=== PATIENT | female | born 1960 | race Caucasian/White ===

== ENCOUNTER 2020-07-08 17:10 | Inpatient (IN) ==
[2020-07-08 18:58] LABS: Appearance Urine Clear (Clear); Bilirubin Urine Negative (Negative); Blood Urine Negative (Negative); Color Urine Yellow; Glucose Urine UA Negative (Negative); Ketones Urine Negative (Negative); Leukocyte Esterase Urine Negative (Negative); Nitrite Urine Negative (Negative); Protein Urine Negative (Negative); Urobilinogen Urine Negative (Negative); pH Urine 7.5 (4.5-7.5)
[2020-07-08] MEDS ORDERED: SODIUM CHLORIDE 0.9% 1000ML 1,000 ML IV STA (19:30)
[2020-07-08 19:41] LABS: Basophils # (auto) 0.02 K/uL (0-0.2); Basophils % (auto) 0.2 %; Eosinophils # (auto) 0.11 K/uL (0-0.5); Eosinophils % (auto) 1.3 %; Hematocrit (blood only) 33.1 % (37-47); Hemoglobin 11.5 g/dL (12.0-16.0); Immature Granulocytes # (auto) 0.02 K/uL (0.00-0.02); Immature Granulocytes % (auto) 0.2 %; Lymphocytes # (auto) 2.07 K/uL (1.2-3.4); Lymphocytes % (auto) 25.1 %; Mean Corpuscular Hemoglobin 30.3 pg (25-34); Mean Corpuscular Hgb Conc 34.7 g/dL (32-36); Mean Corpuscular Volume 87.3 fL (80-100); Mean Platelet Volume 8.2 fL (7.4-10.4); Monocytes # (auto) 0.86 K/uL (0.11-0.59); Monocytes % (auto) 10.4 %; Neutrophils # (auto) 5.18 K/uL (1.4-6.5); Neutrophils % (auto) 62.8 %; Platelet Count 331 K/uL (130-400); RDW Coefficient of Variation 12.1 % (11.5-14.5); RDW Standard Deviation 38.9 fL (36.4-46.3); Red Blood Count 3.79 M/uL (4.2-5.4); White Blood Count 8.26 K/uL (4.8-10.8)
[2020-07-08 19:48] LABS: Albumin Level 4.1 gm/dl (3.4-5.0); BUN Creatinine Ratio 17.2 (10-20); Calcium 9.2 mg/dl (8.5-10.1); Est GFR (African American) 113.6; Potassium 4.1 mmol/L (3.5-5.1)
[2020-07-08 19:51] LABS: Bilirubin,Total 0.2 mg/dl (0.2-1); Globulin 4.1 gm/dl (2.5-4.0); Total Protein 8.2 gm/dl (6.4-8.2)
--- NOTE | 2020-07-08 20:30 | History & Physical Report ---
Date of Service July 08, 2020 Assessment & Plan (1) Hyponatremia: This is a 59yo F with PMH of seizure disorder who presents to ED for treatment of hyponatremia. -Transitioned from Tegretol to Trileptal 600mg BID 4 weeks ago with subsequent hyponatremia. Na previously 133-137 and has been 122 since starting Trileptal -Currently asymptomatic. No lethargy, headache, confusion or nausea -Initial Na in ED 122. Started on NSS @ 125 ml/hr which has been discontinued -Likely SIADH 2/2 Trileptal medication. Discussed case with Dr. Lee who recommends fluid restriction of 1.5 L -Monitor sodium with BMP at [place] and at 0600 tomorrow -Routine nephrology consult (2) Seizure disorder: Remote history of seizures. Discontinued Trileptal and starting Tegretol 600mg TID this evening -Routine neurology consult DVT Ppx: SQ heparin Code status: FULL PCP: Kristy Dispo: Admitted to [facility]. Plan to return home once medically stable. Patient seen in collaboration with Dr. Hays. Please see addendum. History of Present Illness Chief Complaint: abnormal labwork Primary Care Provider: Madalyn Wagner DO This is a 59yo F with PMH of seizure disorder who presents to ED for treatment of hyponatremia. Patient follows with Dr. Solis for seizure disorder and had abnormal outpatient labwork from 07/05 with Na of 122. Dr. Solis changed seizure regimen 3-4 weeks ago from Tegretol 200mg 3 tabs TID to Trileptal 600mg BID. While on Tegretol, patient's sodium ranged from 133-137 but has been low at 122 since initiating Trileptal at the beginning of the month. Was seen at [place] [facility] earlier this month with abdominal cramping and was thought to have bacterial enteritis and was discharged on Flagyl. Abdominal symptoms have improved but she has been experiencing intermittent headache, nausea and muscle cramps over the past few weeks, which she attributed to enteritis and new medication for seizures. After abnormal labwork from 07/05 resulted, patient was directed to come to hospital for management of hyponatremia. Dr. Solis also recommends discontinuing Trileptal and resuming Tegretol 200 mg 3 tabs TID with close outpatient follow up for further medication titration. Patient is feeling well currently. Denies fever, chills, headache, lightheadedness, visual changes, chest pain, palpitations, shortness of breath, abdominal pain, nausea, vomiting, dysuria, constipation or diarrhea. Allergies Allergy/AdvReac Type Severity Reaction Status Date / Time amoxicillin AdvReac "does not Unverified 07/08/20 20:30 react well with me. makes me really sick" Home Medications Home Medications Medication Instructions Recorded Confirmed Type am-gsm-gtrsw-calcium carb-K1 1 tab PO DAILY 07/08/20 07/08/20 History [Women's 50 Plus Multivitamin] omeprazole 20 mg PO DAILY 07/08/20 07/08/20 History oxcarbazepine 1,200 mg PO BID 07/08/20 07/08/20 History simvastatin 20 mg PO HS 07/08/20 07/08/20 History vitamin A-vitamin D3 1 cap PO DAILY 07/08/20 07/08/20 History Past Med/Surg History Medical History Seizure disorder Surgical History Fracture of left hip requiring operative repair H/O foot surgery History of appendectomy Hx of tonsillectomy Family History Other Stroke Social History Smoking Status: Former smoker Hx Alcohol Use: No Hx Substance Use: No Preferred Language: Estonian Feels Safe at Home: Yes Review of Systems Review of Systems: At least ten systems reviewed and negative except as noted in the HPI. Physical Exam Physical Exam: General Appearance: WD/WN, vitals as above, NAD, sitting up in bed, pleasant, conversing easily Head: normocephalic, atraumatic Eyes: normal inspection, PERRL, conjunctivae normal, anicteric sclerae ENT: external ear and nose normal, oropharynx normal Neck: normal visual inspection, trachea midline, no thyromegaly Respiratory: normal respiratory effort, lungs clear to auscultation, no wheeze, rales, rhonchi. No accessory muscle use Cardiovascular: regular rate, rhythm, no murmur, normal peripheral pulses, no BLE edema. Vessels: no JVD Chest: normal inspection of chest Abdomen/GI: normal bowel sounds, soft, nontender, no hepatosplenomegaly Extremities/Musculoskeletal: no cyanosis or clubbing, extremities motor strength 5/5 Neurologic: PERRL, EOMI, accommodation nl, no face palsy, no dysarthria, CN's II-XI intact bilaterally and moves all extremities Psychiatric: A+Ox3, + anxious Skin: no rashes, normal color, warm/dry Results & Data Results & Data ([facility]) Vital Signs (Past 12 Hours) Vital Signs Temp Pulse Pulse Resp BP BP Pulse Ox 07/08/20 19:46 71 20 169/89 H 99 07/08/20 17:56 36.9 C 73 17 205/91 H 99 Laboratory Results Short CBC 07/08/20 07/08/20 07/08/20 Range/Units 18:30 18:30 19:30 WBC 8.26 (4.8-10.8) K/uL RBC 3.79 L (4.2-5.4) M/uL Hgb 11.5 L (12.0-16.0) g/dL Hct 33.1 L (37-47) % MCV 87.3 (80-100) fL MCH 30.3 (25-34) pg MCHC 34.7 (32-36) g/dL RDW Std Deviation 38.9 (36.4-46.3) fL RDW Coeff of Evelio 12.1 (11.5-14.5) % Plt Count 331 (130-400) K/uL MPV 8.2 (7.4-10.4) fL Immature Gran % (Auto) 0.2 % Neut % (Auto) 62.8 % Lymph % (Auto) 25.1 % Walker % (Auto) 10.4 % Eos % (Auto) 1.3 % Baso % (Auto) 0.2 % Neut # (Auto) 5.18 (1.4-6.5) K/uL Lymph # (Auto) 2.07 (1.2-3.4) K/uL [place] # (Auto) 0.86 H (0.11-0.59) K/uL Eos # (Auto) 0.11 (0-0.5) K/uL Baso # (Auto) 0.02 (0-0.2) K/uL Immature Gran # (Auto) 0.02 (0.00-0.02) K/uL Sodium 122 L (136-145) mmol/L Potassium 4.1 (3.5-5.1) mmol/L Chloride 88 L (98-107) mmol/L Carbon Dioxide 27 (21-32) mmol/L Anion Gap 7.0 (3-11) BUN 11 (7-18) mg/dl Creatinine 0.62 (0.6-1.2) mg/dl Est Cr Clr Drug Dosing 122.0 ml/min Est GFR ( Amer) 113.6 Est GFR (Non-Af Amer) 98.0 BUN/Creatinine Ratio 17.2 (10-20) Glucose 90 (70-99) mg/dl Calcium 9.2 (8.5-10.1) mg/dl Total Bilirubin 0.2 (0.2-1) mg/dl AST 15 (15-37) U/L ALT 28 (12-78) U/L Alkaline Phosphatase 116 (45-117) U/L Total Protein 8.2 (6.4-8.2) gm/dl Albumin 4.1 (3.4-5.0) gm/dl Globulin 4.1 H (2.5-4.0) gm/dl Albumin/Globulin Ratio 1.0 (0.9-2) Lipase 166 (73-393) U/L Urine Color Yellow Urine Appearance Clear (Clear) Urine pH 7.5 (4.5-7.5) Ur Specific [place] 1.010 (1.000-1.030) Urine Protein Negative (Negative) Urine Glucose (UA) Negative (Negative) Urine Ketones Negative (Negative) Urine Blood Negative (Negative) Urine Nitrite Negative (Negative) Urine Bilirubin Negative (Negative) Urine Urobilinogen Negative (Negative) Ur Leukocyte Esterase Negative (Negative) BMP 07/08/20 18:30 Sodium 122 L Potassium 4.1 Chloride 88 L Carbon Dioxide 27 BUN 11 Creatinine 0.62 Glucose 90 Calcium 9.2 Liver Function 07/08/20 Range/Units 18:30 Total Bilirubin 0.2 (0.2-1) mg/dl AST 15 (15-37) U/L ALT 28 (12-78) U/L Alkaline Phosphatase 116 (45-117) U/L Albumin 4.1 (3.4-5.0) gm/dl Urine 07/08/20 Range/Units 18:30 Urine Color Yellow Urine Appearance Clear (Clear) Urine pH 7.5 (4.5-7.5) Ur Specific [place] 1.010 (1.000-1.030) Urine Protein Negative (Negative) Urine Glucose (UA) Negative (Negative) Code Status & VTE Plan VTE Prophylaxis Plan VTE Prophylaxis will be ordered: Yes
--- NOTE | 2020-07-08 21:40 | Hospitalist Progress Note ---
Date of Service July 08, 2020 Results & Data Results & Data ([facility]) Vital Signs (Past 12 Hours) Vital Signs Temp Pulse Pulse Resp BP BP Pulse Ox 07/08/20 20:57 72 20 166/85 H 100 07/08/20 19:46 71 20 169/89 H 99 07/08/20 17:56 36.9 C 73 17 205/91 H 99
--- NOTE | 2020-07-08 21:46 | Communication Note ---
Date of Service: July 08, 2020 Attending Addendum: care coordinated with AVEL Ricks please refer to her notes for full details, I agree with her notes patient seen and examined, records reviewed by myself as well on exam, patient seen sitting up in bed, comfortable denies headache, dizziness, confusion, lethargy, nausea no other symptoms VS noted and reviewed oriented x 3 , not in distress, speaks in sentences with no effort nor accessory muscle use normal rate, regular rhythm, no murmurs clear breath sounds bilaterally non distended, soft, nontender no bipedal edema, erythema, warmth no neuro deficits WBC 8.26 Hg 11.5 Crea 0.62 ASSESSMENT AND PLAN> HYPONATREMIA, SECONDARY TO TRILEPTAL Na 122 (baseline 137) discussed with Nephro Dr. Lee recommend to d/c Trileptal, Fluid restriction, Na q6h SEIZURE DISORDER per Dr. Solis, transition patient back to Tegretol 600mg TID other diagnoses and plan of care as per AVEL Ricks's notes Kale Hays MD
[2020-07-08] MEDS ORDERED: ACETAMINOPHEN 325 MG TAB PO PRN (22:04)
[2020-07-08] MEDS: carBAMazepine 200 MG TABLET PO SCH (22:29)
--- NOTE | 2020-07-08 23:48 | Emergency Department Note ---
Impression & Plan Hyponatremia ED Provider Note INFORMANT: Patient ED PROVIDER(S): Kp Spring MD CHIEF COMPLAINT: Abnormal labs PLAN: Disposition: Admitted Condition: Good MEDICAL DECISION MAKING: Patient presented with complaints of abnormal labs. She was told she had low sodium. The patient's neurologist did contact the ER and stated that she was started on Trileptal which can cause hyponatremia. Outpatient labs revealed hyponatremia. She felt the patient should be admitted and have her Trileptal transition back to Tegretol. The patient noted feeling mildly weak and general malaise. She had blood work obtained. Her CBC was unremarkable. The patient's chemistry panel does reveal hyponatremia which is quite significant at 122. Urinalysis was unremarkable. [facility] was [facility] the patient. He evaluated the patient and admit her for further management. Triage Nursing notes reviewed and agree them. Vital Signs: reviewed and remarkable for no significant abnormalities Differential diagnosis: Medication side effect, infection, dehydration, metabolic abnormality, hypo/hyperglycemia, electrolyte disturbance, anemia, hypoxia, cardiac sources, intracerebral event, toxicologic, neurologic, as well as other pathologies. Diagnostics interpreted by me: Imaging studies: [facility] HPI: The patient is a 59 year old female who presents to the Emergency Room with complaints of abnormal labs. This started on Wednesday and is persisting. The patient also notes the following associated symptoms, feeling generally weak and general malaise. The patient has has found no relieving factors. Current pain is rated as 0/10. Patient recently was transitioned Tegretol to Trileptal. Outpatient labs revealed hyponatremia. Neurology is concerned about possible medication induced hyponatremia from the Trileptal. They recommended admission and transition back to the Tegretol. Pt denies LOC, headache, fevers, chills, diaphoresis, visual changes, neck pain, chest pain, breathing difficulties, nausea, vomiting, abdominal pain, back pain, melena, hematochezia, urinary symptoms, numbness, lymphadenopathy, rash, or other complaints. ROS: See above HPI for pertinent positives & negatives. A total of 10 systems reviewed and were otherwise negative. PAST MEDICAL HISTORY:See Below, seizure disorder PAST SURGICAL HISTORY:See Below, FAMILY HISTORY:See Below SOCIAL HISTORY:See Below, employed HOME MEDICATIONS:See Below ALLERGIES:See Below VITALS:See Below PHYSICAL EXAMINATION: GENERAL: Awake, alert, well-appearing, in no distress HENT: Normocephalic, atraumatic. Oropharynx unremarkable. EYES: Normal conjunctiva. Sclera non-icteric. NECK: Inspection normal. Non-tender. Supple. No nuchal rigidity. FROM. No masses. RESPIRATORY: Clear to auscultation. No wheezes. No rales. Normal respiratory effort. CARDIAC: Normal rate. Normal rhythm. No murmurs. No rubs. Extremities warm and well perfused. Pulses equal. No JVD. GI: Soft, non-distended. No tenderness to palpation. No rebound or guarding. No masses. RECTAL: Deferred. MUSCULOSKELETAL: Atraumatic. Chest examination reveals no tenderness. The back is symmetrical on inspection without obvious abnormality. There is no CVA tenderness to palpation. No joint edema. LOWER EXTREMITIES: Calves are equal size bilaterally and non-tender. No edema. No discoloration. NEURO: Normal sensorium. No sensory or motor deficits noted. SKIN: No rash or jaundice noted. Kp Spring MD Past Med/Surg History Medical History Seizure disorder Surgical History Fracture of left hip requiring operative repair H/O foot surgery History of appendectomy Hx of tonsillectomy Family History Other Stroke Social History Smoking Status: Former smoker Second Hand Exposure: No; Do You Dip or Chew Tobacco: No; Tobacco Cessation Education Requested by Patient: No Hx Alcohol Use: No Hx Substance Use: No Preferred Language: Japanese Communication Ability: Effective Current Living Situation: Spouse Other Information That Helps Us Care for You: No Feels Safe at Home: Yes Safety Concerns: Feels Safe At This Time Assistive Devices: None Allergies Allergies Allergy/AdvReac Type Severity Reaction Status Date / Time amoxicillin AdvReac "does not Unverified 07/08/20 20:30 react well with me. makes me really sick" Home Meds Home Medications Medication Instructions Recorded Confirmed ic-efr-noxsr-calcium carb-K1 1 tab PO DAILY 07/08/20 07/08/20 [Women's 50 Plus Multivitamin] omeprazole 20 mg PO DAILY 07/08/20 07/08/20 oxcarbazepine 1,200 mg PO BID 07/08/20 07/08/20 simvastatin 20 mg PO HS 07/08/20 07/08/20 vitamin A-vitamin D3 1 cap PO DAILY 07/08/20 07/08/20 Results & Data (ED) Vital Signs Vital Signs - 24 hr 07/08/20 17:56 07/08/20 19:46 Temperature 36.9 C Temperature Source Oral Pulse Rate 73 Pulse Rate [Bilateral Apical] 71 Respiratory Rate 17 20 Respiratory Effort / Characteristics Non-Labored Spontaneous Non-Labored Respiratory Depth Normal Normal Respiratory Pattern Regular Blood Pressure 205/91 H Blood Pressure [Right Arm] 169/89 H Blood Pressure Mean 129 Blood Pressure Mean [Right Arm] 115 Pulse Oximetry 99 99 Oxygen Delivery Method Room Air Room Air Sepsis Recent Fever Within 48 Hours No Sepsis New/Unexplained Change in Mental Status No Sepsis Action Taken by Nursing No Action Required Laboratory Data Result diagrams: 07/08/20 19:30 07/08/20 18:30 Lab Results 07/08/20 07/08/20 07/08/20 Range/Units 18:30 18:30 19:30 WBC 8.26 (4.8-10.8) K/uL RBC 3.79 L (4.2-5.4) M/uL Hgb 11.5 L (12.0-16.0) g/dL Hct 33.1 L (37-47) % MCV 87.3 (80-100) fL MCH 30.3 (25-34) pg MCHC 34.7 (32-36) g/dL RDW Std Deviation 38.9 (36.4-46.3) fL RDW Coeff of Evelio 12.1 (11.5-14.5) % Plt Count 331 (130-400) K/uL MPV 8.2 (7.4-10.4) fL Immature Gran % (Auto) 0.2 % Neut % (Auto) 62.8 % Lymph % (Auto) 25.1 % [place] % (Auto) 10.4 % Eos % (Auto) 1.3 % Baso % (Auto) 0.2 % Neut # (Auto) 5.18 (1.4-6.5) K/uL Lymph # (Auto) 2.07 (1.2-3.4) K/uL [place] # (Auto) 0.86 H (0.11-0.59) K/uL Eos # (Auto) 0.11 (0-0.5) K/uL Baso # (Auto) 0.02 (0-0.2) K/uL Immature Gran # (Auto) 0.02 (0.00-0.02) K/uL Sodium 122 L (136-145) mmol/L Potassium 4.1 (3.5-5.1) mmol/L Chloride 88 L (98-107) mmol/L Carbon Dioxide 27 (21-32) mmol/L Anion Gap 7.0 (3-11) BUN 11 (7-18) mg/dl Creatinine 0.62 (0.6-1.2) mg/dl Est Cr Clr Drug Dosing 122.0 ml/min Est GFR ( Amer) 113.6 Est GFR (Non-Af Amer) 98.0 BUN/Creatinine Ratio 17.2 (10-20) Glucose 90 (70-99) mg/dl Calcium 9.2 (8.5-10.1) mg/dl Total Bilirubin 0.2 (0.2-1) mg/dl AST 15 (15-37) U/L ALT 28 (12-78) U/L Alkaline Phosphatase 116 (45-117) U/L Total Protein 8.2 (6.4-8.2) gm/dl Albumin 4.1 (3.4-5.0) gm/dl Globulin 4.1 H (2.5-4.0) gm/dl Albumin/Globulin Ratio 1.0 (0.9-2) Lipase 166 (73-393) U/L Urine Color Yellow Urine Appearance Clear (Clear) Urine pH 7.5 (4.5-7.5) Ur Specific [place] 1.010 (1.000-1.030) Urine Protein Negative (Negative) Urine Glucose (UA) Negative (Negative) Urine Ketones Negative (Negative) Urine Blood Negative (Negative) Urine Nitrite Negative (Negative) Urine Bilirubin Negative (Negative) Urine Urobilinogen Negative (Negative) Ur Leukocyte Esterase Negative (Negative) Administered Medications Carbamazepine (Carbamazepine 200 Mg Tablet) 600 mg PO TID APRIL Stop: 08/07/20 21:20 Last Admin: 07/08/20 22:29 Dose: 600 mg Documented by: [id number] Discontinued Medications Sodium Chloride (Nss 1000ml) 1,000 mls @ 125 mls/hr IV .Q8H STA Stop: 07/09/20 03:29 Last Admin: 07/08/20 19:46 Dose: 125 mls/hr Documented by: [id number] Discharge Plan Visit Data Chief Complaint: Abnormal Labs/Diagnostic Testing Stated Complaint: HYPONATREMIA ED Provider: Kp Spring Discharge Problem: Hyponatremia Patient Disposition: Admitted As Inpatient Discharge Instructions Interventions: ED Discharge Assessment Last Done: 07/08/20 21:04
[2020-07-09 00:17] LABS: Calcium 8.9 mg/dl (8.5-10.1); Creatinine Clr Calc Pharmacy 119.7 ml/min; Est GFR (African American) 113.6; Potassium 3.6 mmol/L (3.5-5.1)
[2020-07-09] MEDS ORDERED: hydrALAZINE HCL 20 MG/ML VIAL IV PRN (00:53)
[2020-07-09] MEDS ORDERED: HEPARIN SOD 5,000 UNIT/0.5 ML VIAL SQ SCH (06:00)
[2020-07-09] MEDS ORDERED: ACETAMINOPHEN 325 MG TAB PO PRN (07:25)
[2020-07-09 07:56] LABS: Hematocrit (blood only) 34.1 % (37-47); Hemoglobin 11.7 g/dL (12.0-16.0); Mean Corpuscular Hemoglobin 30.3 pg (25-34); Mean Corpuscular Hgb Conc 34.3 g/dL (32-36); Mean Corpuscular Volume 88.3 fL (80-100); Mean Platelet Volume 7.8 fL (7.4-10.4); Platelet Count 290 K/uL (130-400); RDW Coefficient of Variation 12.3 % (11.5-14.5); RDW Standard Deviation 39.2 fL (36.4-46.3); Red Blood Count 3.86 M/uL (4.2-5.4); White Blood Count 4.47 K/uL (4.8-10.8)
--- NOTE | 2020-07-09 08:22 | Nephrology Consultation ---
Date of Consultation July 09, 2020 Assessment & Plan (1) Hyponatremia: Presenting sodium 122 suspected from trileptal; improving clinically and appropriately to 125 this am. do note that some work up still to be done as below -- volume depletion may have a role here as well -cont med changes per neuro -goal sNa is 128 by this evening -agree w/ already ordered recheck bmp at 1300 and 1900 > plan w/ midday to also check serum osms, urine osms, rd urine Na (ordered) -cont FR 1.5L Present on Admission?: Yes (2) Seizure disorder: per neuro and primary service; transitioning away from trileptal and back to tegretol Present on Admission?: Yes History of Present Illness Reason for Consultation: hyponatremia Requesting Physician: Dr Hays Attending Physician: Maury Lord MD History of Present Illness 59 y/o F whom I'm asked to see for hyponatremia after she was sent in by neurology for OP sNa 122. PMH includes seizure disorder with change one month back from tegretol to trileptal. Prior to medication switch, sNa ran about 135; earlier this month did have sNa 122 during emergency room visit to outside hospital for abdominal pain; attributed to bacterial enteritis and d/c home on flagyl w/o intervention on sodium. Since then pt has had marked abdominal bloating and cramping at times w/ decreased po intake and occasional PICKERING, mm cramps she thought were from trileptal. Then labs rechecked on 07/05 again w/ low sodium 122. Advised by me and neuro to come to ER for evaluation. Presented to ER w/ same sNa 122 yesterday 1829. On presentation, trileptal stopped, tegretol resumed and pt put on FR 1.5L. She did have some saline (less than 1L) in ER. Last evening sNa up to 126 by 2330; 125 this morning. No NSAID use. Allergies Allergy/AdvReac Type Severity Reaction Status Date / Time amoxicillin AdvReac "does not Unverified 07/08/20 20:30 react well with me. makes me really sick" Home Medications Home Medications Medication Instructions Recorded Confirmed Type yr-rcc-uxguv-calcium carb-K1 1 tab PO DAILY 07/08/20 07/08/20 History [Women's 50 Plus Multivitamin] omeprazole 20 mg PO DAILY 07/08/20 07/08/20 History oxcarbazepine 1,200 mg PO BID 07/08/20 07/08/20 History simvastatin 20 mg PO HS 07/08/20 07/08/20 History vitamin A-vitamin D3 1 cap PO DAILY 07/08/20 07/08/20 History Patient History Medical History Seizure disorder Surgical History Fracture of left hip requiring operative repair H/O foot surgery History of appendectomy Hx of tonsillectomy Family History Other Stroke Social History Smoking Status: Former smoker Second Hand Exposure: No; Do You Dip or Chew Tobacco: No; Tobacco Cessation Education Requested by Patient: No Hx Alcohol Use: No Hx Substance Use: No Preferred Language: Omani Communication Ability: Effective Current Living Situation: Spouse Other Information That Helps Us Care for You: No Feels Safe at Home: Yes Safety Concerns: Feels Safe At This Time Assistive Devices: None Review of Systems Review of Systems: All systems reviewed & are unremarkable except as noted in HPI & below Constitutional: + fatigue and + anorexia Gastrointestinal: + abdominal pain, + bloating, + early satiety and + nausea; no vomiting and no change in bowel habits Genitourinary: + urinary hesitancy (notes weaker stream lately) Neurologic: + lack of coordination; no gait abnormality, no unsteadiness, no falls, no tingling, no seizure-like activity and no behavioral changes Results & Data ([facility]) Vital Signs (Past 12 Hours) Vital Signs Temp Pulse Pulse Resp BP Pulse Ox 07/09/20 07:36 75 07/08/20 23:00 71 07/08/20 21:30 36.8 C 80 16 168/90 H 07/08/20 20:57 72 20 166/85 H 100 Laboratory Results 07/09/20 07:40 07/09/20 07:40 Urinalysis: Specific gravity 1010 clear yellow urine with a pH of 7.5 and dipstick indices negative Diagnostic Findings none
[2020-07-09 08:24] LABS: BUN Creatinine Ratio 15.6 (10-20); Calcium 9.3 mg/dl (8.5-10.1); Creatinine Clr Calc Pharmacy 123.5 ml/min; Est GFR (African American) 114.8; Est GFR (Non-African American) 99.1; Potassium 4.5 mmol/L (3.5-5.1)
[2020-07-09] MEDS: PANTOprazole 40 MG TAB PO SCH (08:27)
[2020-07-09] MEDS: carBAMazepine 200 MG TABLET PO SCH ×3 (08:27→18:25)
--- NOTE | 2020-07-09 08:35 | Hospitalist Progress Note ---
Date of Service July 09, 2020 Assessment & Plan (1) Hyponatremia: This is a 59yo F with PMH of seizure disorder who presents to ED for treatment of hyponatremia. -Transitioned from Tegretol to Trileptal 600mg BID 4 weeks ago with subsequent hyponatremia. serum sodium was previously 133 to 137 as outpatient and has been around 122 since starting Trileptal -Patient was told to present to the hospital on 07/08/2020 because of hyponatremia labs when outpatient -07/08/2020 serum sodium 122. Patient was initially giving normal saline IV fluids. Admitting hospitalist team also discussed with [facility] nephrology Dr. Lee who recommends fluid restriction of 1.5 L and that at this time, patient should be off the Trileptal in case any contribution by medication to hyponatremia. SIADH was also discussed as a possibility for the persistent hyponatremia -patient denies recent history of vomiting or diarrhea -continue fluid restriction of 1500 ml daily as per recent nephrology recommendations -serum sodium levels mildly improved to 126 and 125 as of the labs on 07/09/2020 -patient denies of ever being on sodium tablets and this can considered in the future Hypertensive episode -hypertensive blood pressures noted in the ED, unclear as to the cause -patient not on blood pressure medications on outpatient basis. monitor blood pressure at this time (2) Seizure disorder: Remote history of seizures. -Discontinued Trileptal and at this time, patient is on former Tegretol dosing of 600 mg three times a day (scheduled for 6 AM, after lunch, after dinner as per patient's preference) -Routine neurology consult (3) Anemia: -hemoglobin stable between 11 to 12 (4) Abdominal cramping: -patient has been scheduled for outpatient followup with gastroenterology clinic because of history of intermittent abdominal cramps/bloating symptoms -continue protonics DVT Ppx: replaced Subcutaneous heparin 5000 units q8 hours with SCDs when at rest, because of anemia and history of abdominal cramp symptoms, also because patient is ambulatory Code status: FULL PCP: Kristy Admission and Anticipated Discharge Date Admission Date: July 08, 2020 Subjective Patient finished her meals. No acute distress. She wishes the Tegratol dosing schedule for 6 in the morning, after lunch with meals, after dinner with meals. no obvious tremors noted. no acute pain. no chest pain. no acute abdomen pain. no headache. no dizziness. patient reports she ambulates okay. no nausea. no vomiting. no swelling of the extremities. Review of Systems Review of Systems: All systems reviewed & are unremarkable except as noted in Subjective Physical Exam Constitutional: cooperative and comfortable Eyes: PERRL, conjunctivae normal, anicteric sclerae EOM intact bilaterally ENMT: external ear and nose normal, oropharynx normal Neck: trachea midline, no thyromegaly normal visual inspection Respiratory: normal respiratory effort, lungs clear to auscultation Cardiovascular: Rate/Rhythm: regular rate Gastrointestinal (Abdomen): normal bowel sounds, soft, nontender, no hepatosplenomegaly Musculoskeletal: Head/Neck/Chest: normocephalic and head atraumatic Neurologic: PERRL, EOMI, accommodation nl, no face palsy, no dysarthria CN's II-XI intact bilaterally and moves all extremities Psychiatric: A+Ox3, euthymic affect Results & Data Results & Data ([facility]) Vital Signs (Past 12 Hours) Vital Signs Temp Pulse Pulse Pulse Resp BP Pulse Ox 07/09/20 07:36 75 07/09/20 07:30 36.8 C 68 18 137/78 94 07/08/20 23:00 71 07/08/20 21:30 36.8 C 80 16 168/90 H 07/08/20 20:57 72 20 166/85 H 100
[2020-07-09] MEDS ORDERED: [UNRECOGNIZED DRUG - OTHER] PO SCH (09:00)
[2020-07-09] MEDS ORDERED: [UNRECOGNIZED DRUG - OTHER] PO SCH (09:00)
--- NOTE | 2020-07-09 13:08 | Consultation Report ---
DATE OF CONSULTATION: 07/09/2020 NEUROLOGY CONSULTATION NOTE CHIEF COMPLAINT: Hyponatremia. HISTORY OF PRESENT ILLNESS: This is a 59-year-old woman with history of epilepsy, following with Dr. Lida Solis, admitted for treatment of hyponatremia. The patient recently was admitted for an abnormal sodium level, which was checked as an outpatient, which resulted in a sodium level of 122. Her antiepileptic medication regimen was adjusted about 1 month ago from Tegretol 200 mg 3 tablets 3 times daily to Trileptal 600 mg twice daily. While on Tegretol, the patient's sodium was in the mid 130s, but is now much lower since initiating Trileptal at the beginning of this month. Since she has been experiencing some intermittent headaches, nausea, muscle cramps over the past few weeks, per telephone encounter yesterday, Dr. Solis recommended discontinuing Trileptal and resuming Tegretol 600 mg 3 times daily with outpatient followup. ALLERGIES: AMOXICILLIN. HOME MEDICATIONS: Trileptal 600 mg twice daily, omeprazole, simvastatin, vitamin A, vitamin D. PAST MEDICAL HISTORY: Epilepsy. PAST SURGICAL HISTORY: Fracture of the left hip, foot surgery, history of appendectomy, history of tonsillectomy. FAMILY HISTORY: Pertinent for stroke. SOCIAL HISTORY: She is a former smoker. Denies alcohol. REVIEW OF SYSTEMS: All review of systems was negative except as noted above in the HPI. PHYSICAL EXAMINATION: VITAL SIGNS: Blood pressure 137/78, pulse is 75, respiratory rate is 18, temperature is 36.8, oxygen saturation is 94% on room air. GENERAL: The patient appears her stated age, in no distress. HEENT: Head is atraumatic and normocephalic. Normal eyelids. Normal conjunctivae. NECK: Supple. LUNGS: Normal respiratory effort. CARDIOVASCULAR: Normal pulses. ABDOMEN: Nondistended. SKIN: No skin rash. NEUROPSYCHIATRIC: Normal mood. She is awake, alert and oriented to person, place and time. Her knowledge is appropriate. Her attention is normal. Her language shows no aphasia, no dysarthria. Comprehension is intact. Following simple commands. DIAGNOSTIC TESTING AND LABORATORY VALUES: WBC 4.47, hemoglobin 11.7, platelet count is 290. Sodium is 125, potassium 4.5, chloride 93, BUN 9, creatinine 0.60. ASSESSMENT AND PLAN: A 59-year-old woman with history of epilepsy, admitted with worsening hyponatremia, thought secondary to Trileptal. We will discontinue Trileptal and resume Tegretol 200 mg 3 tablets 3 times daily. Appreciate nephrology's assistance. Will need to trend sodium levels as outpatient. Please contact me with any additional questions or concerns. MARQUESD
[2020-07-09 13:53] LABS: Albumin Level 4.1 gm/dl (3.4-5.0); BUN Creatinine Ratio 15.5 (10-20); Calcium 9.3 mg/dl (8.5-10.1); Creatinine Clr Calc Pharmacy 100.2 ml/min; Est GFR (African American) 102.1; Est GFR (Non-African American) 88.1; Potassium 4.1 mmol/L (3.5-5.1)
[2020-07-09 13:56] LABS: Bilirubin,Total 0.2 mg/dl (0.2-1); Globulin 4.1 gm/dl (2.5-4.0); Total Protein 8.2 gm/dl (6.4-8.2)
[2020-07-09 15:29] LABS: Appearance Urine Clear (Clear); Bacteria Urine Automated Negative (Negative); Bilirubin Urine Negative (Negative); Blood Urine Negative (Negative); Color Urine Yellow; Epithelial Cell Urine Auto >30 /lpf (0-5); Glucose Urine UA Negative (Negative); Ketones Urine Negative (Negative); Leukocyte Esterase Urine Trace (Negative); Nitrite Urine Negative (Negative); Protein Urine Negative (Negative); RBC Urine Automated 0-4 /hpf (0-4); Specific Gravity Urine 1.011 (1.000-1.030); Urobilinogen Urine Negative (Negative)
[2020-07-09 20:30] LABS: BUN Creatinine Ratio 15.2 (10-20); Calcium 9.4 mg/dl (8.5-10.1); Creatinine Clr Calc Pharmacy 66.2 ml/min; Est GFR (African American) 61.8; Est GFR (Non-African American) 53.4; Potassium 4.5 mmol/L (3.5-5.1)
[2020-07-09] MEDS ORDERED: SIMVASTATIN 20 MG TAB PO SCH (21:00)
[2020-07-10 01:28] LABS: Basophils # (auto) 0.01 K/uL (0-0.2); Basophils % (auto) 0.1 %; Eosinophils # (auto) 0.14 K/uL (0-0.5); Hematocrit (blood only) 32.7 % (37-47); Hemoglobin 11.2 g/dL (12.0-16.0); Immature Granulocytes # (auto) 0.01 K/uL (0.00-0.02); Immature Granulocytes % (auto) 0.1 %; Lymphocytes # (auto) 1.68 K/uL (1.2-3.4); Lymphocytes % (auto) 23.7 %; Mean Corpuscular Hemoglobin 30.3 pg (25-34); Mean Corpuscular Hgb Conc 34.3 g/dL (32-36); Mean Corpuscular Volume 88.4 fL (80-100); Monocytes # (auto) 0.98 K/uL (0.11-0.59); Monocytes % (auto) 13.8 %; Neutrophils # (auto) 4.26 K/uL (1.4-6.5); Neutrophils % (auto) 60.3 %; Platelet Count 299 K/uL (130-400); RDW Coefficient of Variation 12.4 % (11.5-14.5); RDW Standard Deviation 39.9 fL (36.4-46.3); White Blood Count 7.08 K/uL (4.8-10.8)
[2020-07-10 01:46] LABS: Albumin Level 3.7 gm/dl (3.4-5.0); BUN Creatinine Ratio 23.1 (10-20); Calcium 8.9 mg/dl (8.5-10.1); Creatinine Clr Calc Pharmacy 87.2 ml/min; Est GFR (African American) 86.3; Est GFR (Non-African American) 74.5; Potassium 4.2 mmol/L (3.5-5.1)
[2020-07-10 01:48] LABS: Bilirubin,Total 0.2 mg/dl (0.2-1); Globulin 3.8 gm/dl (2.5-4.0); Total Protein 7.5 gm/dl (6.4-8.2)
[2020-07-10] MEDS: PANTOprazole 40 MG TAB PO SCH (08:03)
[2020-07-10] MEDS: carBAMazepine 200 MG TABLET PO SCH ×2 (08:04→12:50)
[2020-07-10 09:15] LABS: BUN Creatinine Ratio 19.8 (10-20); Calcium 9.1 mg/dl (8.5-10.1); Creatinine Clr Calc Pharmacy 96.9 ml/min; Est GFR (African American) 97.3; Est GFR (Non-African American) 83.9; Potassium 4.2 mmol/L (3.5-5.1)
--- NOTE | 2020-07-10 11:35 | Discharge Summary ---
Date of Service July 10, 2020 Admission HPI Per Admitting Provider This is a 59yo F with PMH of seizure disorder who presents to ED for treatment of hyponatremia. Patient follows with Dr. Solis for seizure disorder and had abnormal outpatient labwork from 07/05 [address] of [address] Solis changed seizure regimen 3-4 weeks ago from Tegretol 200mg 3 tabs TID to Trileptal 600mg BID. While on Tegretol, patient's sodium ranged from 133-137 but has been low at 122 since initiating Trileptal at the beginning of the month. Was seen at [place] [facility] earlier this month with abdominal cramping and was thought to have bacterial enteritis and was discharged on Flagyl. Abdominal symptoms have improved but she has been experiencing intermittent headache, nausea and muscle cramps over the past few weeks, which she attributed to enteritis and new medication for seizures. After abnormal labwork from 07/05 resulted, patient was directed to come to hospital for management of hyponatremia. Dr. Solis also recommends discontinuing Trileptal and resuming Tegretol 200 mg 3 tabs TID with close outpatient follow up for further medication titration. Patient is feeling well currently. Denies fever, chills, headache, lightheadedness, visual changes, chest pain, palpitations, shortness of breath, abdominal pain, nausea, vomiting, dysuria, constipation or diarrhea. Principal Diagnosis Hyponatremia Hypertensive episode (in the Emergency room) Seizure disorder Anemia Abdominal Cramping Discharge Exam Constitutional cooperative and comfortable Eyes PERRL, conjunctivae normal, anicteric sclerae EOM intact bilaterally ENMT external ear and nose normal, oropharynx normal Neck trachea midline, no thyromegaly normal visual inspection Respiratory normal respiratory effort, lungs clear to auscultation Cardiovascular Rate/Rhythm: regular rate Gastrointestinal (Abdomen) normal bowel sounds, soft, nontender, no hepatosplenomegaly Musculoskeletal Head/Neck/Chest: normocephalic and head atraumatic Neurologic PERRL, EOMI, accommodation nl, no face palsy, no dysarthria CN's II-XI intact bilaterally and moves all extremities Psychiatric A+Ox3, euthymic affect Discharge Data Allergies Allergy/AdvReac Type Severity Reaction Status Date / Time oxcarbazepine AdvReac Unknown hyponatremi Verified 07/10/20 11:10 [From Trileptal] a amoxicillin AdvReac "does not Unverified 07/08/20 20:30 react well with me. makes me really sick" Consultations 07/08/20 20:14 ED Decision to Admit Stat 07/08/20 22:04 Consult Nephrology Routine Consult Neurology Routine Hospital Course (1) Hyponatremia: This is a 59yo F with PMH of seizure disorder who presents to ED for treatment of hyponatremia. -Transitioned from Tegretol to Trileptal 600mg BID 4 weeks ago with subsequent hyponatremia. serum sodium was previously 133 to 137 as outpatient and has been around 122 since starting Trileptal -Patient was told to present to the hospital on 07/08/2020 because of hyponatremia labs when outpatient -07/08/2020 serum sodium 122. Patient was initially giving normal saline IV fluids. Admitting hospitalist team also discussed with [facility] nephrology Dr. Lee who recommends fluid restriction of 1.5 L and that at this time, patient should be off the Trileptal in case any contribution by medication to hyponatremia. SIADH was also discussed as a possibility for the persistent hyponatremia -patient denies recent history of vomiting or diarrhea -continue fluid restriction of 1500 ml daily as per recent nephrology recommendations -serum sodium levels mildly improved to 126 and 125 as of the labs on 07/09/2020 -discharge to home Patient will need to follow with primary care doctor for outpatient labs of serum sodium. The 07/08/2020 serum sodium of 122, subsequently in high 120s while off Trileptal (Oxcarbazepine) and on 1.5 liter daily water restriction. Serum sodium stabilized as 128 on 07/10/[address] Davenport from nephrology allows for hospital discharge by hospitalist medicine and advises that patient continues to be on 1.5 liter daily water restriction at this time, while being off the Trileptal -discharge medication of carbamazepine 600 mg three times a day sent electronically to [facility] in [place], [place] -patient not on blood pressure medications on outpatient basis. monitor blood pressure at this time, outpatient primary care doctor follow up on blood pressure treatment -discharge appointments 07/11/2020 8:20 AM Provider Helen Tovar MD Department Gastroenterology, [facility] 08/01/2020 10:00 AM Provider Lida Solis MD Department Neurology [facility] 08/26/2020 2:30 PM Provider Jocelyn Davenport MD Department Nephrology, [facility] Hypertensive episode -hypertensive blood pressures noted in the ED, unclear as to the cause -patient not on blood pressure medications on outpatient basis. monitor blood pressure at this time, outpatient primary care doctor follow up on blood pressure treatment (2) Seizure disorder: Remote history of seizures. -Discontinued Trileptal and at this time, patient is on former Tegretol dosing of 600 mg three times a day (scheduled for 6 AM, after lunch, after dinner as per patient's preference) -neurology consult advised to continue the Tegretol (3) Anemia: -hemoglobin stable between 11 to 12 (4) Abdominal cramping: -patient has been scheduled for outpatient followup with gastroenterology clinic because of history of intermittent abdominal cramps/bloating symptoms -continue protonics Total Time Total Time Spent Total Time Spent (In Minutes): 40 minutes Total Time Includes: Examination of the Patient, Discharge Planning, Medication Reconciliation and Communication With Other Providers Discharge Plan Discharge Items Patient Disposition: Home - Self-Care Reason For Visit: HYPONATREMIA Discharge Diagnosis: Hyponatremia Hypertensive episode (in the Emergency room) Seizure disorder Anemia Abdominal Cramping Condition on Discharge: Good Activity: Resume your previous activity Non-emergency contact: Primary Care Provider, Gis Manager, Compensation Associate and Neurologist Call non-emergency contact if: you have any medication questions Follow-up/Referrals: Madalyn Wagner DO [Primary Care Provider] - Diet: Regular Fluids: 1500ml (6 cups) Diet Comment: maintain daily fluid restriction to 1500 ml Addtl Attending Provider Instructions: discharge to home Patient will need to follow with primary care doctor for outpatient labs of serum sodium. The 07/08/2020 serum sodium of 122, subsequently in high 120s while off Trileptal (Oxcarbazepine) and on 1.5 liter daily water restriction. Serum sodium stabilized as 128 on 07/10/[address] Davenport from nephrology allows for hospital discharge by hospitalist medicine and advises that patient continues to be on 1.5 liter daily water restriction at this time, while being off the Trileptal discharge medication of carbamazepine 600 mg three times a day sent electronically to [facility] in [place], [place] patient not on blood pressure medications on outpatient basis. monitor blood pressure at this time, outpatient primary care doctor follow up on blood pressure treatment discharge appointments 07/11/2020 8:20 AM Provider Helen Tovar MD Department Gastroenterology, [facility] 08/01/2020 10:00 AM Provider Lida Solis MD Department Neurology [facility] 08/26/2020 2:30 PM Provider Jocelyn Davenport MD Department Nephrology, [facility] Pending Studies at Discharge: No Stand-Alone Forms: My [facility] [employer], Smoking Cessation Medications and DC Order Prescriptions: New carbamazepine 200 mg Tablet 600 mg PO TID@0800,1300,1900 30 Days Qty: 90 RF: 0 Continued simvastatin 20 mg tablet 20 mg PO HS RF: 0 omeprazole 20 mg Capsule,Delayed Release(Dr/Ec) 20 mg PO DAILY RF: 0 vitamin A-vitamin D3 5,000-400 unit Capsule 1 cap PO DAILY RF: 0 Women's 50 Plus Multivitamin 400 mcg-500 mg calcium-20 mcg Tablet 1 tab PO DAILY RF: 0 Discontinued oxcarbazepine 600 mg tablet 1,200 mg PO BID RF: 0 Discharge Orders: Discharge Order (Routine); Ordered 07/10/20 Ordered By: Maury Lord Admission Data Admit Date/Time: 07/08/20 20:25 Attending Provider: Maury Lord Admit Provider: Kale Hays Primary Care Provider: Madalyn Wagner Other Providers: Kale Hays ; Kristina Lee ; Nahum Flower
--- NOTE | 2020-07-10 18:35 | Nephrology Progress Note ---
Date of Service July 10, 2020 Assessment & Plan (1) Hyponatremia: Presenting sodium 122 suspected from trileptal; improving clinically and appropriately to 128 this am. volume depletion may have a role here as well -cont med changes per neuro -reasonable for d/c home if appropriate from other standpoints -bmp w/in a week and f/u in [facility] -cont FR 1.5L (50 oz ) now and at d/c -no indication to drink pedialyte or eat high sodium diet at this time (2) Seizure disorder: per neuro and primary service; transitioning away from trileptal and back to tegretol Admission and Anticipated Discharge Date Admission Date: July 08, 2020 Subjective back on tegretol and tells me she is surprised at how loopy and off balance she feels. states haveing trouble seeing as well. seen on rounds at about 1210. her ride for hospital discharge arrives during eval Review of Systems Review of Systems: All systems reviewed & are unremarkable except as noted in HPI & below Physical Exam Constitutional: well developed and well nourished; no acute distress Eyes: EOM intact bilaterally ENMT: Ears: no external ear abnormality Nose: no external nose abnormality Mouth: + dry oral mucous membranes Neck: no nuchal rigidity Respiratory: normal respiratory effort Auscultation: lungs clear to auscultation bilaterally and + diminished lung sounds Cardiovascular: RRR, no murmur, no edema Gastrointestinal (Abdomen): Inspection/Auscultation: normal bowel sounds Percussion/Palpation: abdomen soft; abdomen nontender Musculoskeletal: no cyanosis or clubbing, extremities motor strength 5/5 Extremities: strength 5/5 throughout Skin: no rashes, warm and dry Neurologic: lanier, fluent speech, no tremor Psychiatric: Eye Contact: good eye contact Thought Process: + tangential thought process Results & Data (MN) Vital Signs (Past 12 Hours) Vital Signs Temp Pulse Pulse Resp BP Pulse Ox 07/10/20 12:59 36.5 C 75 18 161/85 H 97 07/10/20 11:24 36.5 C 75 18 161/85 H 97 07/10/20 07:38 36.8 C 112 H 16 150/96 H 90 07/10/20 07:21 95 H Laboratory Results 07/10/20 01:01 07/10/20 08:12
== END 2020-07-10 13:30 | disposition home or self-care (01) | DRG 645 ==
LOC: ED 17:10 → SUATTDRO 20:25 → 2N 20:25